=== PATIENT | male | born 1950 | race Caucasian/White ===

== ENCOUNTER 2024-09-20 10:53 | Outpatient (AMB) | payer MEDICARE, SELFPAY ==
--- NOTE | 2024-09-20 11:08 | HO.NEPHOV ---
Vital Signs 09/20/24 11:11 Height 6 ft Weight 170 lb BMI 23.1 BP 124/70 Blood Pressure Location Rt brachial Position Sitting Intake Visit Reasons: Renal insufficiency/ AG metabolic acidosis/ Conf Senior Trial Attorney Required: No Accompanied by: Spouse Allergies No Known Allergies Allergy (Verified 09/20/24 11:11) HPI Comments Details: Thank you for referring Mr Gastelum for evaluation of marginal rise in serum creatinine recently on a backdrop of CKD. There is a mention of atrophy of one of the kidneys in medical records with the patient was unable to explain more about it. He has seen urologist Dr. Jose C Beckwith and did not pursue any further workup. Initially patient was visibly and expressively agitated for seeing any doctor. He denies any coronary artery disease, congestive heart failure, CVA but has history of prediabetes for over 20 years. He is status post below-knee amputation. He has longstanding hypertension and has been taking hydrochlorothiazide. His serum creatinine has been fluctuant and it has gone up to 1.3 lately. He denies any nausea, vomiting, diarrhea, excessive nonsteroidal anti-inflammatory medication intake. He denies any history of cancer or difficulty urination. He denied any new systemic complaints. [facility] Medical History (Updated 09/20/24 @ 22:33 by Ko Chavez MD) Prediabetes Peripheral neuropathy Left otitis externa Hyperlipidemia Lexis thyroiditis CKD (chronic kidney disease) stage 2, GFR 60-89 ml/min Chronic obstructive lung disease Chronic kidney disease (CKD) Chronic constipation Benign essential hypertension Atrophy of muscle of both hands Atrophy of kidney Acquired right foot drop Surgical History Hx of decompressive lumbar laminectomy H/O colonoscopy H/O hemorrhoidectomy H/O hernia repair History of esophagogastroduodenoscopy (EGD) (~07/2022) History of endoscopic retrograde cholangiopancreatography History of amputation of left leg through tibia and fibula Social History (Updated 09/20/24 @ 11:09 by Angie Cook MA) Alcohol intake: former Patient Tobacco Use Status: Former Tobacco user Use of substances other than those prescribed or required for medical reasons: No Review of Systems Const All systems reviewed & are unremarkable except as noted in HPI and below Physical Exam Vital Signs: Last Vital Signs BP 124/70 09/20/24 11:11 BMI result Body Mass Index 23.1 Const General: comfortable and no acute distress Orientation/consciousness: patient oriented x3 HEENT Head: Yes normocephalic Mouth: Normal oral and palatal mucosa present Eyes EOM: EOMs intact bilaterally Neck Neck: Yes supple Resp Auscultation: clear to auscultation bilaterally Cardio Jugular venous distension: no JVD Rate: regular rate GI Palpation (GI): Soft to palpation Auscultation: normal bowel sounds Neuro General: patient oriented x3 Results Reviewed Nephrology Results: No Data to Display Assessment & Plan Assessment & Plan (1) Benign essential hypertension: Code(s): I10 - Essential (primary) hypertension Category: Medical (2) CKD stage 3a, GFR 45-59 ml/min: Code(s): N18.31 - Chronic kidney disease, stage 3a Category: Medical Plan Mr Gastelum likely has mild CKD with progression on a backdrop of hypertension. Previous medical records mention that he has an atrophic kidney, details of which is unclear. If he has an atrophic kidney , probably its due to renal dysplasia. Its un likely that he has renovascular hypertension given the minimal amount of medication he needed to control his blood pressure. Either the case, his recent serum creatinine is not too far away from his baseline. It is also possible that his serum creatinine his fluctuant due to hydrochlorothiazide he has been taking. I discontinued the same and initiated him on amlodipine 5 mg daily. I ordered some follow-up blood work. Patient wants to follow-up with his primary carer closely which I encouraged and will see me in the future as on a needed basis, if needed. Orders: Orders Electrolytes 6 Months I10 - Essential (primary) hypertension Calcium 6 Months I10 - Essential (primary) hypertension Immunofixation Pnl, Serum 6 Months I10 - Essential (primary) hypertension Creatinine 6 Months I10 - Essential (primary) hypertension Blood Urea Nitrogen 6 Months I10 - Essential (primary) hypertension Medications: New amlodipine 5 mg PO DAILY 90 tabs 3RF Coding Level of Care Code New Pt Level 4 (76053) Diagnoses Benign essential hypertension I10 CKD stage 3a, GFR 45-59 ml/min N18.31
[2024-09-20 11:11] VITALS: BP 124/70; BMI 23.1
--- OUTSIDE RECORDS SUMMARY | 2024-09-20 13:18 | XMS_ITS | Data Portability ---
Author Organization [place] [facility] Address [address] [place] [id number] Care Team Providers Care Juice Standardizer Name Role Phone WELCH ERNIE Primary Care Provider [phone] Assessment Encounter Date Assessment Date Assessment LastModified by Organization Details LastModified Time 11/07/2021 11/07/2021 Time On Scene with Patient: 00:43:44 71 year old male patient new to . PMHX of HTN,COPD, Lexis's thyroiditis, hyperkalemia, hyperlipidemia, left BKA 09/27 for osteomyelitis at tibial fracture site ,open surgical wound s/p debridement left stump and right second Toe Surgical Wound Closure on 10/19. Per patient and his he has experienced diarrhea since amputation in September which seems to be correlated with use of multiple antibiotics. Patient experienced headache, dizziness, chills, and was found unresponsive on 10/29. He was taken to [facility] via ambulance with negative blood, fecal, and imaging. He was diagnosed with dehydration and administered IV fluids and discharged home. He continues to experience diarrhea with minimal relief from Ammodium AD. He had a total of 3 BM today which were lose. He is currently on Augmentin. He is able to tolerate po intake and is drinking liquid IV. He is not following a specific diet and had a hamburger for breakfast. Per patient he has follow up with PCP. Exam: Patient appears to be upset with visit as well as having to explain his PMH. Refused to have provider assess left BKA stump. VS stable, Alert and oriented. Resting on his bed comfortably. Normacephalic, atraumatic, PERRLA, EOMI, moist oral mucous membrane, BLCTA, RRR, S1,S2, Extremity with no edema,good skin turgor. No tics, tremors, or fasciculation noted. Speech clear. Test: PVIX used to gather pertinent information. Lab analysis completed with no abnormal finding. C-diff negative. Urinalysis negative. Patient was on mult. abx with currently being on Augmentin. Covid and Influenza negative. Currently has SNV for BKA wound assessment. Plan: -Diarrhea secondary to mult abx -Discussed with patient BRAT diet -Sign and symptoms of dehydration -Increase oral intake of fluids -Cholestyramine prescribed to assist with chronic diarrhea. -Patient to cont. taking Probiotic. - The patient is advised to make an appt with PCP in 3-5 days to discuss ongoing symptoms/ further management. The patient is also advised to go to the ED immediately for any worsening symptoms. The patient understood and agreed with this plan. The patient was given discharge instructions and all questions were answered prior to DH team departure. [email or web address] Not available 11/14/2021 00:08:04 Plan of Treatment Reminders Order Date Submit Date Provider Last Modified By Organization Details Last Modified Time Details Appointments None recorded. Lab None recorded. Referral None recorded. Procedures None recorded. Surgeries None recorded. Imaging None recorded. Medication Orders Cholestyram ine Light 4 gram powder for susp in a packet 2021 022 [employer] [id number], [address] [place], [address], 23:31:33 Patient TargetsNo targets recorded. Patient Instructions Encounter Date Encounter Id Patient Instructions Last Modified By Organization Details Last Modified Time 11/07/2021 [id number] diarrhea: care instructions [id number] Not available 11/07/2021 18:21:02 Acute Nausea and Vomiting/Diarrhea BASIC INFORMATION Acute nausea and vomiting often start suddenly, worsen quickly, and last a few hours to 24 hours. Nausea and vomiting most often occur together, although they can occur alone. Cases of acute nausea and vomiting are often from gastrointestinal viruses such as norovirus, rotavirus and influenza. Less often it can be caused by toxins released from food that ? g oes bad? as well as some types of bacteria and parasites. Diarrhea can also occur. Your nurse practitioner will conduct a careful history to help determine if you have one of the more serious causes. The cause of your nausea and vomiting may be unknown. INSTRUCTIONS Medicines: 1) Anti-nausea: You may have been given a prescription for an anti nausea medicine such as Zofran, Phenergan or Compazine. These can be used every 6-8 hours to help prevent nausea and vomiting. They can make you sleepy, so do not drive after taking them. Be sure to read all of the drug information from the pharmacy. 2) Tylenol: Low grade fever is common with acute nausea and vomiting. You may use Tylenol, per the recommended dosing on the label, to help control fever. If you have liver disease, do not use Tylenol. Ask your COLLECTION SPECIALIST how to address fever if you are concerned about Tylenol use. 3) Anti-diarrheal medicines: These are available [id number], but in some cases are not recommended and can even worsen some cases of intestinal problems. Ask your COLLECTION SPECIALIST if you should use them. In children under 12, the only anti-diarrheal that should be considered is Kaopectate. Diet: 1) For the next 12-24 hours, take clear liquids only. No dairy and no caffeinated beverages. After you have not vomited for a complete hour (either with or without the help of the anti-nausea medicine), begin by taking one tablespoon of clear liquid every 15 minutes for one hour. If you are able to tolerate this, you may increase the amount to 2 tablespoons every hour for the next 2 hours. 2) Clear liquids such as gatorade, pedialyte or broth are recommended because of the electrolytes and sugars that will help replenish the losses from vomiting and diarrhea. 3) If you are able to tolerate clear liquids as instructed above, you may begin to take a bland diet. Plain pasta/noodles or toast are suggestions. If you have had diarrhea, bananas, rice and applesauce are suggested as these can help make the stools more solid. Avoid greasy, fatty or fried foods FOLLOW UP You should make an appointment to see your primary care provider within 24 hours or sooner for worsening condition as described below. If you do not have a primary care doctor, you should follow up with one of the PCP suggestions from [facility]. SEEK CARE IMMEDIATELY IF: 1) You are still unable to tolerate any oral intake after 24 hours 2) You have blood in your vomit or stool 3) You develop severe abdominal pain that does not go away after an episode of vomiting or diarrhea 4) You have severe dizziness, heart palpitations or are passing out 5) You develop severe muscle cramps or weakness 6) You have not made urine in over 24 hours If you develop any new or worsening symptoms and need after hours care, please go to nearest ER and/or call 911. If you have additional concerns or develop a change in your condition between 8am-10pm, please call [facility] at [phone] to help navigate your care. Thank you for your visit with [facility] today. You were seen today for abdominal pain, nausea, vomiting and/or diarrhea. Medications may have been administered and lab tests may have been performed. At this time, we do not see evidence of a serious surgical or infectious cause of your symptoms. However, lab tests and an evaluation cannot always exclude appendicitis or other serious causes of abdominal pain. Please see a medical professional in 12-24 hours to be re-examined. Seek immediate medical attention for increased pain, vomiting or fever. If you develop any new or worsening symptoms and need after hours care, please go to nearest ER and/or call 911. If you have additional concerns or develop a change in your condition between 8am-10pm, please call [facility] at [phone] to help navigate your care. 3 Not available 11/07/2021 18:33:55 Reason for Referral None Reported. Procedures Surgical History Date Name Laterality Status Provider Name and Address Organization Details Recorded Time Hernia repair w/mesh completed January MAURY Cohen [address] [place], [address], [place] [facility] 11/07/2021 18:32:05 amputation of left and right leg through tibia and [place], [address], [place] [facility] 11/07/2021 18:32:39 Back Surgery completed [place], [address], [place] [facility] 11/07/2021 18:32:48 hemorrhoidectomy [place], [address], [place] [facility] 11/07/2021 18:33:05 Imaging Results None recorded. Procedure Notes None recorded. Medical Equipment None Reported. Allergies No known drug allergies Medications Name Sig Start Date Stop Date Status Note LastModified by Organization Details LastModified Time levothyroxi ne 175 mcg tablet TAKE ONE TABLET BY MOUTH EVERY DAY active Not Available Not Available No t Available atorvastati n 20 mg tablet TAKE ONE TABLET BY MOUTH EVERY DAY active Not Available Not Available No t Available morphine ER 30 mg tablet,exte nded release TAKE 1 TABLET BY MOUTH EVERY 12 HOURS FOR 7 DAYS 11/07 completed Not Available Not Available Not Available Cholestyram ine Light 4 gram powder for susp in a packet Take 1 packet 3 times a day by oral route as needed for 7 days. 2021 active Not Available Not Available Not Avai lable amlodipine 5 mg-benazepr il 10 mg capsule TAKE ONE CAPSULE BY MOUTH EVERY DAY 11/07 completed Not Available Not Available Not Available cephalexin 500 mg capsule TAKE ONE CAPSULE BY MOUTH THREE TIMES A DAY 11/07 completed Not Available Not Available Not Available gabapentin 300 mg capsule TAKE 1 CAPSULE BY MOUTH THREE TIMES A DAY FOR 7 DAYS 11/07 completed Not Available Not Available Not Available amoxicillin 875 mg-potassiu m clavulanate 125 mg tablet TAKE 1 TABLET BY MOUTH EVERY 12 HOURS FOR 14 DAYS active Not Available Not Available No t Available oxycodone 5 mg tablet TAKE 1 TABLET BY MOUTH EVERY 6 HOURS NEEDED FOR PAIN 11/07 completed Not Available Not Available Not Available enoxaparin 40 mg/0.4 mL subcutaneou s syringe INJECT THE CONTENTS OF 1 SYRINGE (0.4 ML) SUBCUTANE OUSLY EVERY DAY FOR 14 DAYS 11/07 completed Not Available Not Available Not Available hydrochloro thiazide 12.5 mg tablet TAKE ONE TABLET BY MOUTH EVERY DAY active Not Available Not Available No t Available oxycodone 10 mg tablet TAKE 1 TABLET BY MOUTH EVERY 6 HOURS NEEDED FOR PAIN 11/07 completed Not Available Not Available Not Available Suboxone 2 mg-0.[address] THREE FILMS UNDER THE TONGUE EVERY DAY 11/07 completed Not Available Not Available Not Available Suboxone 4 mg-[address] TWO FILMS UNDER THE TONGUE EVERY DAY active Not Available Not Available No t Available Probiotic (S.boulardi i) 250 mg capsule TAKE 1 CAPSULE BY MOUTH EVERY DAY active Not Available Not Available No t Available Vitals Date Recorded Respiratory rate Heart rate Oxygen saturation Oxygen saturation in Arterial blood by Pulse oximetry Body temperature Systolic blood pressure Diastolic blood pressure Provider Name and Address Organization Details Last Updated DateTime 2 24 /min 83 /min 97 % 97 % 98.4 [degF] 138 mm[Hg] 74 mm[Hg] Not Available [facility] 17:29:28 Social History Question Answer Notes LastModified by Organizat ion Details LastModified Time Tobacco Smoking Status Former Smoker January Noel, MAURY [address], [place], [address], [place] [facility] 11/07/2021 18:31:01 Do You Have An Advance Directive? No [email or web address] Information not available 11/07/2021 What Is Your Level Of Alcohol Consumption? None [email or web address] Information not available 11/07/2021 What Is Your Code Status? Full Code [email or web address] Information not available 11/07/2021 Do You Or Have You Ever Used E-cigarettes Or Vape? Current User Of Electronic Cigarettes [email or web address] Information not available 11/07/2021 Within The Past 12 Months, Has It Happened That The Food You Bought Just Didn't Last And You Didn't Have Money To Get More. No [email or web address] Information not available 11/07/2021 Within The Past 12 Months, Have You Worried That Your Food Would Run Out Before You Got Money To Buy More. No [email or web address] Information not available 11/07/2021 Fall Risk: Do You Feel Unsteady When Standing Or Walking? Yes [email or web address] Information not available 11/07/2021 We Know That How And When People Interact With Friends And Family Can Be Very Different From Person To Person. How Often Do You Have The Opportunity To See Or Talk To People That You Care About And Feel Close To? (Ex: Talking To Friends On The Phone Or Visiting Friends Or Family Or Going To Gnosticism Or Club Meetings) 5 Or More Times Per Week [email or web address] Information not available 11/07/2021 Excessive Alcohol Or Drug Use No [email or web address] Information not available 11/07/2021 Does This Patient Have A PCP? Yes Information not available 11/07/2021 Has The Patient Seen Their PCP In The Past 6 Months? Yes [email or web address] Information not available 11/07/2021 We Know From Many Of Our Patients That Covering All Of Their Costs Can Be Difficult At Times. This Can Cause Stress And Impact Health. In The Past Year, Have You Been Unable To Get Any Of The Following When It Was Really Needed? No [email or web address] Information not available 11/07/2021 What Is Your Housing Situation Today? I Have Housing [email or web address] Information not available 11/07/2021 Would You Like Help Connecting To Resources? None [email or web address] Information not available 11/07/2021 Do You Use Any Illicit Or Recreational Drugs? No [email or web address] Information not available 11/07/2021 How Many Years Have You Smoked Tobacco? 50 [email or web address] Information not available 11/07/2021 Do You Or Have You Ever Used Any Other Forms Of Tobacco Or Nicotine? Yes Information not available 11/07/2021 Sex: Unknown Functional Status None recorded. Mental Status None recorded. Family History Nothing Reported. Medical History Condition Response Diabetes N Coronary Artery Disease N CHF N Parkinson's Disease N Cancer N Dementia N Stroke N COPD N Depression N Hypothyroidism Y Asthma N High Cholesterol Y Rheumatoid Arthritis N Pulmonary Embolism N Hypertension Y A-fib N Osteoporosis N Kidney Disease N Past Encounters Encounter ID Performer Location Encounter Start Date Encounter Closed Date Diagnosis/Indication Diagnosis SNOMED-CT Code Diagnosis ICD10 Code Diagnosis Note [id number] January MAURY Cohen [facility] - [address] [address] 11/07/2021 17:28:33 11/14/2021 10:50:37 Diarrhea 55539366 R19.7 Health Concerns Section Related Observation LastModified by Organization Detai ls LastModified Time None Recorded Concern Status LastModified by Organization Details LastModified Time None Recorded Advance Directives Directive N: Payers Encounter Date Sequence Insurance Name Policy Number Policy Kaminski Covered Member ID Kaminski Member ID Guarantor Name 11/07/2021 2 [place] [employer] Scott Gastelum [id number] Scott Gastelum 11/07/2021 1 [place] Scott Gastelum [id number] Scott Gastelum Notes Date Note Type Note Provider Name and Address Organization Details Recorded Time 11/07/2021 text/html 71 year old male patient new to .PMHX of HTN,COPD, Lexis's thyroiditis, hyperkalemia, hyperlipidemia, left BKA 09/27 for osteomyelitis at tibial fracture site ,open surgical wound s/p debridement left stump and right second Toe Surgical Wound Closure on 10/19.Per patient and his he has experienced diarrhea since amputation in September which seems to be correlated with use of multiple antibiotics. Patient experienced headache, dizziness, chills, and was found unresponsive on 10/29. He was taken to [facility] via ambulance with negative blood, fecal, and imaging. He was diagnosed with dehydration and administered IV fluids and discharged home. He continues to experience diarrhea with minimal relief from Ammodium AD. He had a total of 3 BM today which were lose. He is currently on Augmentin. He is able to tolerate po intake and is drinking liquid IV. He is not following a specific diet and had a hamburger for breakfast. C/O : diarrheaDenies N/V or abdominal pain. January MAURY Cohen [address], [place], [address], [place] [facility] 11/14/2021 00:08:14
== END 2024-09-20 11:56 | disposition home or self-care (01) ==
LOC: HO.HKAS 10:53
PROVIDERS: PCP Family Medicine; Visit Provider Internal Medicine Nephrology
DX: I10 Essential (primary) hypertension (principal); N18.31 Chronic kidney disease, stage 3a
CPT/HCPCS: 99204

== ENCOUNTER → 2024-09-20 10:53 | Outpatient (BNVA) | payer MEDICARE, SELFPAY | PROVIDERS: PCP Family Medicine; Visit Provider Internal Medicine Nephrology | DX: I12.9 Hypertensive chronic kidney disease with stage 1 through stage 4 chronic kidney disease, or unspecified chronic kidney disease (principal); N18.31 Chronic kidney disease, stage 3a | CPT/HCPCS: 99202 ==